=== PATIENT | male | born 1950 | race Caucasian/White ===

== ENCOUNTER → 2019-04-13 | Day surgery (SDC) | payer MEDICARE ==
[~2019-04-13] MED LIST: ASCO500T2 PO; ASPI-630 PO; GLIP-26 PO; IV RINGERS,LACTATED 1000ML 1,000 ML IV SCH; LISI-338 PO; MAGN400T3 PO; METF10007 PO; MINO100T2 PO; MULT-658 PO; OMEG1CAP50 PO; PARO20TA3 PO; PROPOFOL 40 ML IV ONE; SAW450CA7 PO; SAXA5TAB PO; SIMV40TA3 PO; TAMS0.4C2 PO
[2019-04-13 11:24] VITALS: BP 124/86
--- NOTE | 2019-04-14 20:06 | PATHOLOGY ---
[facility] Accession Number: [id number] . 01 Material submitted: . PART A: colon - TRANSVERSE COLON POLYP BIOPSY. Modifiers: transverse PART B: colon - SIGMOID COLON POLYP BIOPSY. Modifiers: sigmoid . 01 Clinical history: . Pre-OP DX: Screening Post-OP DX: Polyp . 02 Diagnosis: A. Colon biopsies, transverse colon polyp: - Tubular adenoma. . B. Colon biopsy, sigmoid colon polyp: - Consistent with hyperplastic polyp/prominent mucosal fold, with mucosal-associated lymphoid aggregate. (JPM:luiz; 04/14/2019) QMS/04/14/2019 . 02 Comment: There is no high grade dysplasia or evidence of malignancy. . 02 Electronically signed: . Jimmy Keen MD, Pathologist NPI- [id number] . 01 Gross description: . A. Received in formalin labeled "Benjamín Condon, transverse colon polyp BX," are 5 segments of calderon soft tissue measuring 0.8 x 0.6 x 0.1 cm in aggregate dimensions and ranging from 0.1 to 0.3 cm in maximum dimension. The specimen is submitted entirely in cassette A1. . B. Received in formalin labeled "Benjamín Condon, sigmoid colon polyp," is a single segment of calderon soft tissue measuring 0.4 cm in maximum dimension. The specimen is entirely submitted in cassette B1. (TSD; 04/13/2019) TOB/TOB . 02 Pathologist provided ICD-10: D12.3, K63.5 . 02 CPT . 685569, 836013 Specimen Comment: A courtesy copy of this report has been sent to Specimen Comment: [phone], . Specimen Comment: Report sent to / DR ROSADO Performed at: 01 [facility] [address], [place], [place] [id number] MD Alvaro Carrington MD Phone: [phone] Performed at: 02 [facility] [address] [place] [id number] MD Jimmy Keen MD Phone: [phone]
== END | disposition home or self-care (01) ==
LOC: SURG 08:56
PROVIDERS: ATTEND Internal Medicine Gastroenterology
DX: D12.3 Benign neoplasm of transverse colon (principal); K63.5 Polyp of colon; K64.0 First degree hemorrhoids; M19.90 Unspecified osteoarthritis, unspecified site; E11.9 Type 2 diabetes mellitus without complications; E78.00 Pure hypercholesterolemia, unspecified; G47.39 Other sleep apnea; F32.9 Major depressive disorder, single episode, unspecified; Z82.49 Family history of ischemic heart disease and other diseases of the circulatory system; Z86.010 Personal history of colon polyps; Z83.3 Family history of diabetes mellitus; Z82.3 Family history of stroke; Z87.891 Personal history of nicotine dependence; Z79.84 Long term (current) use of oral hypoglycemic drugs; Z79.82 Long term (current) use of aspirin; Z79.899 Other long term (current) drug therapy
CPT/HCPCS: 45380; 88305; J2704